=== PATIENT | male | born 1950 | race Caucasian/White ===

== ENCOUNTER 2017-08-03 18:31 | Emergency (ER) | payer OTHER ==
[~2017-08-03] VITALS: Ht 175.3 cm; Wt 111.1 kg
[2017-08-03 19:12] VITALS: Ht 175.3 cm; Wt 111.1 kg
[2017-08-03 21:10] VITALS: BP 130/75
== END 2017-08-03 21:10 | disposition home or self-care (01) ==
LOC: ED 18:31
DX: S61.217A Laceration without foreign body of left little finger without damage to nail, initial encounter (principal); S60.512A Abrasion of left hand, initial encounter; S60.511A Abrasion of right hand, initial encounter; W54.0XXA Bitten by dog, initial encounter; Y93.89 Activity, other specified; Y92.89 Other specified places as the place of occurrence of the external cause; Y99.8 Other external cause status
CPT/HCPCS: J2001

== ENCOUNTER 2017-08-05 10:57 | Emergency (ER) | payer OTHER ==
[~2017-08-05] VITALS: Ht 172.7 cm; Wt 112.0 kg
[2017-08-05 11:02] VITALS: BP 151/85; Ht 172.7 cm; Wt 112.0 kg
== END 2017-08-05 11:32 | disposition home or self-care (01) ==
LOC: ED 10:57
DX: S61.217D Laceration without foreign body of left little finger without damage to nail, subsequent encounter (principal); I10 Essential (primary) hypertension; W54.0XXD Bitten by dog, subsequent encounter

== ENCOUNTER 2019-09-04 06:19 | Day surgery (SDC) | payer OTHER ==
[~2019-09-04] VITALS: Ht 165.1 cm; Wt 68.9 kg
[2019-09-04 07:10] VITALS: BP 160/79
[2019-09-04 10:18] VITALS: BP 143/81
== END 2019-09-04 10:00 | disposition home or self-care (01) ==
LOC: DS 06:19 → OR 07:30 → GI 07:30 → OR 08:30 → DS 10:00
DX: K92.1 Melena (principal); D12.5 Benign neoplasm of sigmoid colon; D12.3 Benign neoplasm of transverse colon; D12.8 Benign neoplasm of rectum; I10 Essential (primary) hypertension; E66.01 Morbid (severe) obesity due to excess calories; Z68.25 Body mass index [BMI] 25.0-25.9, adult; Z79.82 Long term (current) use of aspirin; Z79.899 Other long term (current) drug therapy
CPT/HCPCS: 45378; J1200; J1610; J2250; J2310; J3010; J3490